=== PATIENT | male | born 1965 | race Caucasian/White ===

== ENCOUNTER 2020-08-14 11:25 | Outpatient (CLI) | payer OTHER, SELFPAY | END 2020-08-14 11:26 | disposition home or self-care (01) | LOC: ANHCOVIDVC 11:25 | PROVIDERS: PCP Internal Medicine | DX: Z23 Encounter for immunization (principal) | CPT/HCPCS: 0001A; 91300 ==

== ENCOUNTER 2020-09-04 11:51 | Outpatient (CLI) | payer OTHER, SELFPAY | END 2020-09-04 11:52 | disposition home or self-care (01) | LOC: ANHCOVIDVC 11:51 | PROVIDERS: PCP Internal Medicine | DX: Z23 Encounter for immunization (principal) | CPT/HCPCS: 0002A; 91300 ==

== ENCOUNTER 2020-10-31 11:58 | Emergency (ER) | payer OTHER, SELFPAY ==
[2020-10-31 12:20] VITALS: BP 118/92; PULSE 86; RESP 12; TEMP 37.2; O2SAT 100
--- NOTE | 2020-10-31 12:34 | ED.URI ---
HPI - URI/Sore Throat General Chief Complaint: Upper Respiratory Infection Stated Complaint: COLD SYMPTOMS Time Seen by Provider: 10/31/20 12:34 Source: patient and RN notes reviewed Mode of arrival: ambulatory Limitations: no limitations History of Present Illness HPI Narrative: 55-year-old male presents with concern for sinus congestion, pressure, postnasal drainage. Reports symptoms started on . Reports he has been using DayQuil and NyQuil with occasional relief. He denies sinus pain, purulent sinus drainage, body aches, chills, cough, shortness of breath. Reports he was vaccinated for Covid. MD elicited complaint: nasal congestion Related Data Home Medications Medication Instructions Recorded Confirmed lisinopril-hydrochlorothiazide tablet 10/31/20 Allergies Allergy/AdvReac Type Severity Reaction Status Date / Time No Known Allergies Allergy Verified 10/31/20 12:23 Review of Systems Review of Systems: Narrative: CONSTITUTIONAL: Denies malaise, chills, sweats, or fever. EYES: Denies visual changes, redness, or discharge. ENT: Reports rhinorrhea, congestion. Denies sinus pain, otalgia and sore throat. CARDIOVASCULAR: Denies chest pain, palpitations, or edema. RESPIRATORY: Denies cough or dyspnea. GASTROINTESTINAL: Denies abdominal pain, nausea, vomiting, diarrhea SKIN: Denies rash or itching. MUSCULOSKELETAL: Denies myalgia. NEUROLOGIC: Denies headache. All systems reviewed & are unremarkable except as noted in HPI and below PMFSH Comments At time of signature, agree with nursing past medical, surgical, social and family history. There is no relevant family history pertinent to the presenting complaint Exam Narrative: Exam Narrative: GENERAL: Well-appearing, well-nourished, and in no acute distress. HEAD: Normocephalic EYES: PERRLA, conjunctivae clear ENT: Nares clear, turbinates edematous and erythematous, clear discharge. Mucous membranes moist. TM pearly mccartney with dull light reflex bilaterally; no tragal tenderness. Oropharynx not erythematous without lesions. Tonsils not enlarged and without exudate, no drooling, no hoarseness, no trismus, uvula midline. NECK: Supple. No lymphadenopathy CHEST: Clear to auscultation, breath sounds equal. No wheezing, rhonchi, rales, or stridor. No respiratory distress, speaks in full sentences. HEART: Regular rate and rhythm. No murmur heard. SKIN: Warm, dry, no rash. NEURO: Alert and oriented x3. PSYCH: Normal mood and affect Course Course Emergency Course: Patient is aware of diagnosis, understands and agrees to treatment plan. Anticipatory guidance given. Patient agrees to follow-up as directed and is aware of reasons to seek care at the emergency department. Portions of this record may have been created with voice recognition software Vital Signs Vital signs: Vital Signs Temperature 98.9 F 10/31/20 12:20 Pulse Rate 86 10/31/20 12:20 Respiratory Rate 12 10/31/20 12:20 Blood Pressure 118/92 H 10/31/20 12:20 Pulse Oximetry 100 10/31/20 12:20 Temperature 98.9 F 10/31/20 12:20 Pulse Rate 86 10/31/20 12:20 Respiratory Rate 12 10/31/20 12:20 Blood Pressure 118/92 H 10/31/20 12:20 Pulse Oximetry 100 10/31/20 12:20 Reviewed. MDM - URI/Sore Throat MDM Narrative Medical decision making narrative: Differential diagnosis considered: Stanton virus, strep pharyngitis, allergic rhinitis, upper respiratory tract infection, sinusitis, rhinosinusitis, nasopharyngitis. viral pharyngitis, otitis media, otitis externa, pneumonia, bronchitis, viral cough syndrome, viral syndrome, and influenza. Exam findings show no acute concerns or changes; patient is non-toxic appearing and is in no distress. Patient is appropriate for outpatient treatment and follow-up. Critical Care Time Critical Care Time Critical Care Time: No Discharge Plan Discharge Clinical Impression: Upper respiratory infection Qualifiers: URI type: unspecified viral URI
== END 2020-10-31 13:00 | disposition home or self-care (01) ==
PROVIDERS: Emergency Provider Nurse Practitioner; PCP Internal Medicine
DX: J06.9 Acute upper respiratory infection, unspecified (principal); I10 Essential (primary) hypertension
CPT/HCPCS: 99213; G0463

== ENCOUNTER 2021-10-27 19:54 | Emergency (ER) | payer OTHER, SELFPAY ==
--- NOTE | ~2021-10-27 | XR_ITS ---
EXAMINATION: XR chest 2V Exam Date/Time: 10/27/2021 20:55 CDT HISTORY: extreme dizziness. diaphoretic Comparison: None available. RESULT: Lines, tubes, and devices: None. Lungs and pleura: Clear. Cardiomediastinal silhouette: Normal cardiomediastinal silhouette. Other: No acute osseous or upper abdominal finding. IMPRESSION: No acute cardiopulmonary process. Reviewed, dictated and finalized at location K.
[2021-10-27 20:09] VITALS: BP 129/75; PULSE 104; RESP 20; TEMP 36.2; O2SAT 100
--- NOTE | 2021-10-27 20:14 | ECG_ITS ---
Measurements Intervals [place] Rate: 80 P: 54 AR: 176 QRS: 8 QRSD: 97 T: 58 QT: 372 QTc: 430 Interpretive Statements SINUS RHYTHM WITH OCCASIONAL VENTRICULAR PREMATURE COMPLEXES LOW QRS VOLTAGE IN PRECORDIAL LEADS [QRS DEFLECTION < 1.0 mV IN CHEST LEADS] POSSIBLE RIGHT VENTRICULAR CONDUCTION DELAY [RSR (QR) IN V1/V2] PROBABLE ANTEROSEPTAL MYOCARDIAL INFARCTION , OF INDETERMINATE AGE [35 ms Q WAVE IN V1- V4] NO PREVIOUS ECG AVAILABLE FOR COMPARISON Electronically Signed On 10-27-2021 22:52:48 CDT by Fatoumata Tovar M.D.
[2021-10-27 20:30] LABS: Basophils Absolute Auto 0.1 K/mm3 (0.0-0.1); Basophils Percent Auto 0.5 % (0.2-1.2); Eosinophils Absolute Auto 0.1 K/mm3 (0-0.3); Eosinophils Percent Auto 0.8 % (0-4.4); Hematocrit 48.2 % (42.0-52.0); Hemoglobin 16.1 g/dL (14.0-18.0); Immature Granulocyte Absolute 0.05 K/mm3 (0.00-0.031); Immature Granulocyte Percent A 0.5 % (0-0.5); Lymphocytes Absolute Auto 1.74 K/mm3 (0.9-3.2); Lymphocytes Percent Auto 16.1 % (18.3-44.2); Mean Corpuscular HGB Conc 33.4 g/dl (32-36); Mean Corpuscular Hemoglobin 29.4 pg (26-34); Mean Corpuscular Volume 88.1 fl (80-100); Mean Platelet Volume 9.5 fl (7.4-10.4); Monocytes Absolute Auto 0.6 K/mm3 (0.1-0.6); Monocytes Percent Auto 5.7 % (2.6-8.5); Neutrophils Absolute Auto 8.2 K/mm3 (1.3-6.7); Neutrophils Percent Auto 76.4 % (45.5-73.1); Platelet Count Result 275 k/mm3 (150-375); Red Blood Count 5.47 M/mm3 (4.6-6.20); White Blood Count 10.8 K/mm3 (4.5-10.0)
[2021-10-27 20:43] LABS: Alanine Aminotransferase 20 U/L (6-50); Albumin Level 4.8 g/dL (3.5-5.1); Alkaline Phosphatase 57 U/L (38-126); Anion Gap 9 mmol/L (8-16); Aspartate Amino Transferase 24 U/L (17-59); Bilirubin,Total 1.5 mg/dL (0.2-1.3); Blood Urea Nitrogen 13 mg/dL (9-20); Calcium 9.4 mg/dL (8.4-10.2); Carbon Dioxide 27 mmol/L (22-30); Chloride 99 mmol/L (98-107); Estimated CRCL calculation 72 ml/min; Estimated Glomerular Filt Rate > 60; Glucose 163 mg/dL (65-110); Potassium 3.7 mmol/L (3.4-5.0); Sodium 135 mmol/L (137-145)
[2021-10-27 23:54] VITALS: BP 147/93; O2SAT 100
[2021-10-28 00:01] VITALS: BP 151/84; O2SAT 98
[2021-10-28 00:16] VITALS: BP 153/83; O2SAT 99
--- NOTE | 2021-10-28 00:53 | ED.GENADULT ---
HPI - General Adult General Chief complaint: Dizziness Stated complaint: dizzy Time Seen by Provider: 10/28/21 00:23 History of Present Illness HPI narrative: 56-year-old male presenting to the emergency department for evaluation of cute onset of vertigo and dizziness. Patient states he was driving his car when he had onset of a spinning sensation and then had subsequent nausea and vomiting. Patient states his symptoms have been persistent. Patient denies any ear pain. Patient denies associated sinus pressure coughs colds or fevers. Patient did go swimming over the weekend. Patient states that the spinning sensation is worsened when he is moving, turning his head or his eyes are open. Patient states symptoms are improved when he closes his eyes. Patient denies any associated numbness or weakness. Patient does have a history of high blood pressure for which he takes lisinopril. Patient denies high cholesterol. Patient denies any prior history of CVA or NH. Related Data Home Medications Medication Instructions Recorded Confirmed lisinopril 10 1 tablet PO DAILY 10/31/20 10/31/20 mg-hydrochlorothiazide 12.5 mg tablet terbinafine HCl 250 mg tablet tablet 10/28/21 Allergies Allergy/AdvReac Type Severity Reaction Status Date / Time No Known Allergies Allergy Verified 10/28/21 01:15 Review of Systems Review of Systems: CONSTITUTIONAL: Denies fever, chills, or sweats. EYES: Denies visual changes, redness, or discharge. ENT: Denies rhinorrhea, congestion, sore throat, or otalgia. CARDIOVASCULAR: Denies chest pain, palpitations, or edema. RESPIRATORY: Denies cough or dyspnea. GASTROINTESTINAL: Denies abdominal pain, nausea, vomiting, or diarrhea. GENITOURINARY: Denies dysuria or hematuria. SKIN: Denies rash or itching. MUSCULOSKELETAL: Denies back pain, joint pain, or myalgia. NEUROLOGIC: Denies any headache, numbness or weakness but does have vertigo. See HPI PSYCHIATRIC: Denies anxiety or depression. Exam Narrative: APPEARANCE: Well appearing, no pain, no distress, well-nourished. HEAD: normocephalic, atraumatic. EYES: PERRLA/EOMI, conjunctivae clear. Sustained nystagmus when looking to the left. NOSE: Normal no drainage EARS: Left TM is bulging and erythematous NECK: Supple. No adenopathy, no masses. RESPIRATORY: Airway patent, respirations nonlabored. Clear to auscultation bilaterally, no rales, rhonchi, wheezing. CARDIOVASCULAR: Regular rate and rhythm without murmurs rubs or gallops. ABDOMINAL: Soft, nontender, nondistended, normal bowel sounds MUSCULOSKELETAL: Moves all extremities. Strength/ROM intact, No edema, No calf tenderness. NEURO: Alert. Cranial nerves II through XII intact. Grossly intact, no ataxia of her upper or lower extremities. Normal strength and reflexes. SKIN: Warm, dry. Normal Color Course Course Emergency Course: Suspect benign positional vertigo due to his clinical appearance and due to the involvement of the left middle ear. Patient be treated with meclizine, Zofran, IV fluids and ultimately will be treated with antibiotics for the left ear infection. Low concern for central vertigo due to his clinical appearance. Patient did feel improved with treatment in the emergency room. Patient was able to ambulate at a comfortable level. Patient was encouraged with close follow-up with his primary care physician. All questions and concerns were addressed. Patient was well-appearing at time of discharge from the emergency department. Reevaluation(s) Reevaluation #1: Patient does feel improved with treatment. Patient is willing to be discharged to home. Patient states he does still have some dizziness but states he does feel improved. Patient was advised on home treatment with his antibiotic, meclizine and then the Valium as needed. Patient will be provided close follow-up with ENT. Vital Signs Vital signs: Vital Signs Temperature 97.2 F L 10/27/21 20:09 Pulse Rate 104 H
[2021-10-28 01:01] VITALS: BP 128/85; PULSE 78; RESP 16; O2SAT 97
[2021-10-28] MEDS: ONDANSETRON INJ 4 MG/2 ML VIAL IV PUSH (01:10)
[2021-10-28] MEDS: SODIUM CHLORIDE 0.9% IV 1,000 ML 999 ML IV CONT ×2 (01:10→04:00)
[2021-10-28] MEDS: diazePAM (*CRX) 2 MG TABLET PO (02:05)
[2021-10-28] MEDS: MECLIZINE HCL 25 MG TABLET PO (02:05)
[2021-10-28] MEDS: AMOXICILLIN/CLAVULANATE K 875-125 MG TAB 1 TABLET PO (02:05)
[2021-10-28 03:01] VITALS: BP 140/87; PULSE 67; RESP 16; O2SAT 99
[2021-10-28] MEDS: diphenhydrAMINE HCl INJ 50 MG/ML VIAL 25 MG IV PUSH (04:00)
[2021-10-28 06:22] VITALS: BP 119/78; PULSE 65; RESP 16; O2SAT 99
== END 2021-10-28 06:23 | disposition home or self-care (01) ==
PROVIDERS: Emergency Provider Emergency Medicine; PCP Internal Medicine
DX: H81.12 Benign paroxysmal vertigo, left ear (principal); H66.92 Otitis media, unspecified, left ear; I10 Essential (primary) hypertension
CPT/HCPCS: 36415; 71046; 80053; 85025; 93005; 96361; 96374; 96375; 99284; A9270; J1200; J2405; J7030